=== PATIENT | female | born 1955 | race Caucasian/White ===

== ENCOUNTER → 2023-07-31 10:59 | Outpatient (REF) | payer MEDICARE, OTHER, SELFPAY | LOC: MRI 3T 10:59 | PROVIDERS: ATTENDING PHYSICIAN Obstetrics & Gynecology; FAMILY PHYSICIAN Family Medicine | DX: D21.9 Benign neoplasm of connective and other soft tissue, unspecified (principal); N94.89 Other specified conditions associated with female genital organs and menstrual cycle | CPT/HCPCS: 72197; A9575 ==

== ENCOUNTER → 2023-08-20 17:25 | Outpatient (REF) | payer MEDICARE, OTHER, SELFPAY | LOC: WDC 17:25 | PROVIDERS: ATTENDING PHYSICIAN Obstetrics & Gynecology; FAMILY PHYSICIAN Nurse Practitioner Obstetrics & Gynecology | DX: Z12.31 Encounter for screening mammogram for malignant neoplasm of breast (principal); Z85.3 Personal history of malignant neoplasm of breast; N64.4 Mastodynia | CPT/HCPCS: 77063; 77067 ==

== ENCOUNTER → 2024-08-21 13:13 | Outpatient (REF) | payer MEDICARE, OTHER, SELFPAY | LOC: WDC 13:13 | PROVIDERS: ATTENDING PHYSICIAN Obstetrics & Gynecology; FAMILY PHYSICIAN Family Medicine | DX: N94.89 Other specified conditions associated with female genital organs and menstrual cycle (principal); Z12.31 Encounter for screening mammogram for malignant neoplasm of breast | CPT/HCPCS: 76830; 76856; 77063; 77067 ==